=== PATIENT | female | born 1980 | race American Indian/Alaskan Native ===

== ENCOUNTER 2019-08-14 20:52 | Emergency (ER) | payer OTHER ==
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
[2019-08-15] MEDS ORDERED: ACETAMINOPHEN 500 MG TAB PO ONE (01:01)
[2019-08-15] MEDS ORDERED: IBUPROFEN 600 MG TAB PO ONE (01:01)
[2019-08-15] MEDS ORDERED: CYCLOBENZAPRINE 10 MG TAB PO ONE (01:01)
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
[2019-08-15 04:07] VITALS: BP 124/73
== END 2019-08-15 04:07 | disposition home or self-care (01) ==
LOC: ED 20:52
DX: S16.1XXA Strain of muscle, fascia and tendon at neck level, initial encounter (principal); S50.11XA Contusion of right forearm, initial encounter; M62.830 Muscle spasm of back; V89.2XXA Person injured in unspecified motor-vehicle accident, traffic, initial encounter; Y93.89 Activity, other specified; Y92.410 Unspecified street and highway as the place of occurrence of the external cause; Y99.8 Other external cause status
CPT/HCPCS: 71046; 72100